=== PATIENT | male | born 1970 | race Caucasian/White ===

== ENCOUNTER → 2016-12-02 18:36 | Outpatient (CLI) | payer MEDICAID ==
[2015-08-28 13:54] VITALS: BMI 33.7
[~2016-12-02 18:36] MED LIST: CELEXA40 MG PO; DESERYL100 MG PO; INDERAL10 MG PO; MOBIC7.5 MG PO; NUCYNTA50 MG PO; ROBAXIN500 MG PO; ZANTAC150 MG PO; ZIAC 5-6.25 MG1 TAB PO
[2016-12-02 19:53] LABS: BASOPHILS 1.3 % (0-2); EOSINOPHILS 6.2 % (0-7); HEMATOCRIT 43.9 % (42.0-54.0); HEMOGLOBIN 14.6 g/dL (13.5-17.5); IMMATURE GRANULOCYTES 0.1 % (0-5); LYMPHOCYTES 37.7 % (15-50); MCH 30.5 pg (26.0-34.0); MCHC 33.3 g/dL (31.0-37.0); MCV 91.6 fL (80.0-100.0); MEAN PLATELET VOLUME 10.1 fL (7.4-10.4); MONOCYTES 7.4 % (2-11); NEUTROPHILS 47.3 % (40-80); RBC 4.79 10x6/uL (4.20-6.10); WBC 7.8 10x3/uL (4.8-10.8)
[2016-12-02 20:00] LABS: CALC OSMOLALITY 275 mosm/kg (275-300); CALCIUM 9.3 mg/dL (8.5-10.1); CARBON DIOXIDE 25.6 mmol/L (21.0-32.0); CHLORIDE - SERUM 101 mmol/L (98-107); CREATININE - SERUM 1.1 mg/dL (0.6-1.3); GLUCOSE 84 mg/dL (74-106); POTASSIUM - SERUM 4.7 mmol/L (3.5-5.1); SODIUM 136 mmol/L (136-145); UREA NITROGEN 27 mg/dL (7-18); eGFR NON AFRICAN AMERICAN 77 mL/min (90-120)
[2016-12-02 20:14] LABS: PLATELET COUNT 402 10x3/uL (130-400)
[2016-12-02 21:36] LABS: ERYTHROCYTE SEDIMENTATION RATE 5 mm/hr (0-15)
== END | disposition home or self-care (01) ==
LOC: D.LABREF 18:36
PROVIDERS: Student in an Organized Health Care Education/Training Program
DX: M46.28 Osteomyelitis of vertebra, sacral and sacrococcygeal region (principal); Z51.81 Encounter for therapeutic drug level monitoring; Z79.2 Long term (current) use of antibiotics

== ENCOUNTER → 2017-07-16 10:44 | Outpatient (CLI) | payer MEDICAID ==
[2015-08-28 13:54] VITALS: BMI 33.7
[2017-07-16 13:14] LABS: BASOPHILS 0.5 % (0-2); EOSINOPHILS 4.3 % (0-7); HEMATOCRIT 37.1 % (42.0-54.0); HEMOGLOBIN 11.9 g/dL (13.5-17.5); IMMATURE GRANULOCYTES 0.1 % (0-5); LYMPHOCYTES 18.8 % (15-50); MCH 29.5 pg (26.0-34.0); MCHC 32.1 g/dL (31.0-37.0); MCV 91.8 fL (80.0-100.0); MEAN PLATELET VOLUME 10.9 fL (7.4-10.4); MONOCYTES 7.3 % (2-11); RBC 4.04 10x6/uL (4.20-6.10); RDW 14.5 % (11.5-14.5); WBC 9.1 10x3/uL (4.8-10.8)
[2017-07-16 13:16] LABS: PLATELET COUNT 228 10x3/uL (130-400)
[2017-07-16 13:30] LABS: ALBUMIN 3.8 g/dL (3.4-5.0); ALKALINE PHOSPHATASE 40 U/L (46-116); ALT (SGPT) 26 U/L (10-68); BILIRUBIN - TOTAL 0.32 mg/dL (0.2-1.3); C-REACTIVE PROTEIN 5.7 mg/dL (0.0-0.9); CALC OSMOLALITY 279 mosm/kg (275-300); CARBON DIOXIDE 29.2 mmol/L (21.0-32.0); CHLORIDE - SERUM 103 mmol/L (98-107); GLUCOSE 74 mg/dL (74-106); POTASSIUM - SERUM 4.7 mmol/L (3.5-5.1); PROTEIN - SERUM 6.6 g/dL (6.4-8.2); SODIUM 139 mmol/L (136-145); UREA NITROGEN 22 mg/dL (7-18); eGFR NON AFRICAN AMERICAN 86 mL/min (90-120)
[2017-07-16 14:38] LABS: ERYTHROCYTE SEDIMENTATION RATE 9 mm/hr (0-15)
== END | disposition home or self-care (01) ==
LOC: D.LABREF 10:44
PROVIDERS: Student in an Organized Health Care Education/Training Program
DX: M46.20 Osteomyelitis of vertebra, site unspecified (principal); Z51.81 Encounter for therapeutic drug level monitoring; Z79.2 Long term (current) use of antibiotics